=== PATIENT | male | born 1960 | race Caucasian/White ===

== ENCOUNTER 2018-10-10 11:52 | Day surgery (SDC) | payer MEDICARE ==
[2018-10-09 11:25] LABS: ABSOLUTE BASOPHILS # (AUTO) 0.1 10^3/uL (0.0-0.2); ABSOLUTE EOSINOPHILS # (AUTO) 0.2 10^3/uL (0.0-0.6); ABSOLUTE LYMPHOCYTES (AUTO) 2.2 10^3/uL (0.5-4.7); ABSOLUTE MONOCYTES (AUTO) 0.9 10^3/uL (0.1-1.4); ABSOLUTE NEUT (AUTO) 4.5 10^3/uL (1.7-8.2); BASOPHILS % (AUTO) 0.7 % (0-2); EOSINOPHILS % (AUTO) 2.2 % (0-6); HEMATOCRIT 45.4 % (37.9-51.0); HEMOGLOBIN 15.9 g/dL (13.5-17.0); LYMPHOCYTES % (AUTO) 27.8 % (13-45); MEAN CORPUSCULAR HEMOGLOBIN 31.6 pg (27.0-33.4); MEAN CORPUSCULAR VOLUME 90 fl (80-97); MONOCYTES % (AUTO) 12.2 % (3-13); PLATELET COUNT 216 10^3/uL (150-450); RED BLOOD COUNT 5.04 10^6/uL (4.35-5.55); RED CELL DISTRIBUTION WIDTH 13.6 % (11.5-14.0); SEGMENTED NEUTROPHILS % (AUTO) 57.1 % (42-78); TOTAL CELLS COUNTED % (AUTO) 100 %; WHITE BLOOD COUNT 7.8 10^3/uL (4.0-10.5)
[2018-10-09 11:29] LABS: APPEARANCE,URINE CLEAR; BILIRUBIN,URINE NEGATIVE (NEGATIVE); COLOR,URINE AMBER; GLUCOSE, URINE NEGATIVE (NEGATIVE); KETONES,URINE NEGATIVE (NEGATIVE); LEUKOCYTE ESTERASE,URINE NEGATIVE (NEGATIVE); NITRITE,URINE NEGATIVE (NEGATIVE); PROTEIN,URINE NEGATIVE (NEGATIVE)
[2018-10-09 11:48] LABS: ANION GAP 11 (5-19); BLOOD UREA NITROGEN 16 mg/dL (7-20); CALCIUM 9.1 mg/dL (8.4-10.2); CARBON DIOXIDE 25 mmol/L (22-30); CHLORIDE 106 mmol/L (98-107); GLUCOSE 86 mg/dL (75-110); POTASSIUM 5.1 mmol/L (3.6-5.0); SODIUM 142.4 mmol/L (137-145)
--- NOTE | 2018-10-09 12:37 | RADIOLOGY REPORT (SQ) ---
EXAM DESCRIPTION: CHEST PA/LATERAL COMPLETED DATE/TIME: 10/09/2018 12:11 pm REASON FOR STUDY: PRE-OP COMPARISON: None. EXAM PARAMETERS: NUMBER OF VIEWS: two views TECHNIQUE: Digital Frontal and Lateral radiographic views of the chest acquired. RADIATION DOSE: NA LIMITATIONS: none FINDINGS: LUNGS AND PLEURA: Since the previous examination, mild pleural thickening in the left upp er--mid left hemithorax, may be related prior remote trauma. No acute pulmonary consolidation. No p neumothorax or pleural effusion. MEDIASTINUM AND HILAR STRUCTURES: No masses or contour abnormalities. HEART AND VASCULAR STRUCTURES: Heart normal size. No evidence for failure. BONES: Old left healed rib fractures. HARDWARE: None in the chest. OTHER: No other significant finding. IMPRESSION: 1. Since the previous examination dated 07/27/2011, new mild pleural thickening in the l eft upper-mid hemithorax. This finding may be related prior remote injury/trauma. Correlation and f urther evaluation with CT chest with IV contrast suggested. 2. Several old healed left rib fractures. 3. No acute pulmonary consolidation. TECHNICAL DOCUMENTATION: JOB ID: [id number] [employer]- All Rights Reserved Reading location - IP/workstation name: [email or web address]
--- NOTE | 2018-10-09 16:11 | EKG REPORT ---
SEVERITY:- NORMAL ECG - SINUS RHYTHM : Confirmed by: Cecilia Pedro MD 09-Oct-2018 16:10:01
[~2018-10-10 11:52] MED LIST: CEFAZOLIN 2 GM/D5W RTU 2 GM/50 ML RTUPB IV PRN; LACTATED RINGERS 1000 ML IV PRN; LIDOCAINE 0.5% INJ-PF (5 MG/ML) 50 ML SDV SUBCUT PRN
[2018-10-10] MEDS ORDERED: CEFAZOLIN 2 GM/D5W RTU 2 GM/50 ML RTUPB IV ONE (12:21)
[2018-10-10] MEDS ORDERED: BUPIVACAINE HCL 0.5 % INJ/PF 30 ML SDV ONE (13:00)
[2018-10-10] MEDS ORDERED: EPINEPHRINE INJ/PF 1 MG/1 ML AMPULE ONE (13:00)
[2018-10-10] MEDS ORDERED: ALBUTEROL SULFATE 0.083% NEB 2.5 MG/3 ML AMPUL NEB ONE (13:33)
[2018-10-10] MEDS ORDERED: SUCCINYLCHOLINE CHLORIDE INJ 200 MG/10 ML VIAL ONE (13:45)
[2018-10-10] MEDS ORDERED: KETOROLAC TROMETHAMINE 60 MG/2 ML SDV ONE (13:45)
[2018-10-10] MEDS ORDERED: RINGERS SOLUTION,LACTATED 1,000 ML IV ONE (14:15)
[2018-10-10] MEDS ORDERED: MIDAZOLAM 2 MG/2 ML INJ ONE (14:45)
[2018-10-10] MEDS ORDERED: FENTANYL CITRATE INJ/PF 100 MCG/2 ML AMPUL ONE (14:45)
[2018-10-10] MEDS ORDERED: DEXAMETHASONE SOD PHOSPHATE INJ 4 MG/1 ML VIAL ONE (14:46)
[2018-10-10] MEDS ORDERED: ACETAMINOPHEN 1,000 MG/100 ML RTUPB IV ONE (14:46)
[2018-10-10] MEDS ORDERED: ONDANSETRON HCL INJ/PF 4 MG/2 ML SDV ONE (14:46)
[2018-10-10] MEDS ORDERED: PROPOFOL INJ 200 MG/20 ML VIAL IV ONE (14:46)
[2018-10-10] MEDS ORDERED: EPHEDRINE SULFATE INJ 50 MG/1 ML AMPULE ONE (14:46)
[2018-10-10] MEDS ORDERED: ONDANSETRON HCL INJ/PF 4 MG/2 ML SDV IV PRN ×2 (16:07→17:51)
[2018-10-10] MEDS ORDERED: MEPERIDINE HCL/PF INJ 25 MG/1 ML DISP.SYRIN IV PRN (16:07)
[2018-10-10] MEDS ORDERED: FENTANYL CITRATE INJ/PF 100 MCG/2 ML AMPUL IV PRN ×3 (16:07)
[2018-10-10] MEDS ORDERED: PROMETHAZINE HCL INJ 25 MG/1 ML VIAL IV PRN ×2 (16:07)
[2018-10-10] MEDS ORDERED: MORPHINE SULFATE 10 MG/ML INJ IV PRN ×2 (16:07→17:51)
[2018-10-10] MEDS ORDERED: DIPHENHYDRAMINE HCL 50 MG/ML VIAL IV PRN (16:07)
--- NOTE | 2018-10-10 17:43 | Discharge Summary ---
Discharge Summary (SDC) - Discharge Final Diagnosis: Left shoulder rotator cuff tear Date of Surgery: 10/10/18 Discharge Date: 10/10/18 Condition: Good Treatment or Instructions: Schedule Follow Up w/ Dr. Bi Mcpherson @ [facility] to be seen in 10-14 days or as scheduled [place]: [place]: [place]: May remove dressing on postop day #3, keep incision covered and dry. Cryocuff to shoulder May begin pendulum exercises along w/ hand, wrist and elbow range of motion 4x per day or as tolerated. May remove sling for hygiene purposes otherwise continue it at all times. Stool softener of choice when on pain medication. Prescriptions: Ketorolac Tromethamine [Toradol 10 mg Tablet] 10 mg PO Q8HP PRN #12 tablet PRN Reason: Oxycodone HCl/Acetaminophen [Percocet 5-325 mg Tablet] 1 tab PO Q6 PRN #25 tab PRN Reason: Referrals: INDIO VALENCIA MD [Primary Care Provider] - Respiratory Treatments at Home: Deep Breathing/Coughing, Incentive Spirometer Discharge Activity: No Lifting Over 10 Pounds, No Lifting/Push/Pulling Report the Following to Your Physician Immediately: Fever over 101 Degrees, Unusual Bleeding, Redness, Swelling, Warmth, Increased Soreness
[2018-10-10] MEDS ORDERED: OXYCODONE-ACETAMINOPHEN 5-325 MG TABLET PO PRN (17:51)
--- NOTE | 2018-10-10 17:51 | Operative Report ---
Operative Report DATE OF SURGERY: 10/10/18 PREOPERATIVE DIAGNOSIS: LEFT shoulder rotator cuff tear, AC joint arthritis, de generative SLAP tear POSTOPERATIVE DIAGNOSIS: Same OPERATION: 1. Left shoulder arthroscopy with rotator cuff repair, distal clavicle excision, acromioplasty subacromial decompression. 2. Subpectoralis biceps tenodesis SURGEON: STEPHEN MCBRIDE ANESTHESIA: GA COMPLICATIONS: None ESTIMATED BLOOD LOSS: Minimal PROCEDURE: Indication for above procedure: 58-year-old male with long-standing history of left shoulder discomfort. Attempted conservative measures including anti-inflammatories, injections, therapy without resolution of patient's symptoms. At that point decision was made to proceed with operative intervention. Risks and benefits of the surgical procedure were explained, patient verbalized understanding consented for procedure. Procedure In Detail: Patient was seen and evaluated in the preoperative holding area. The LEFT upper extremity was initialized and marked. Patient received 2g of Ancef IV for bacterial prophylaxis. Patient was taken back to the operative room where transferred to the operative table and placed under general anesthesia. Once they were adequately anesthetized patient was placed in the beachchair position with cervical spine positioned in neutral. Bilateral lower extremities and nonoperative right upper extremities carefully padded. A surgical team debriefing was performed ensuring all instrumentation was available, the surgical procedure was discussed with possible concerns reviewed. The upper extremity was prepped with ChloraPrep and draped in a sterile fashion. A timeout was done identifying correct patient, procedure and extremity everyone in attendance agree with this and verbalized no concerns. Posterior lateral portal was established arthroscope introduced into the Missael humeral joint. Via translation anterior portal established. Diagnostic ar throscopy demonstrated significant SLAP degeneration. The biceps tendon was visualized demonstrating extension into the biceps tendon with significant synovitis. Subscapularis remained intact. The undersurface of the rotator cuff demonstrated high-grade partial-thickness tear of the supraspinatus no involvement of the infraspinatus or teres minor. The biceps tendon was then tenotomized and the labrum debrided. There was grade II changes along the humeral head and glenoid. Chondroplasty was performed to the head. Arthroscope was then introduced into the subacromial space lateral portal was established. Subacromial bursectomy was performed coracoacromial ligament was released but not excised. Inspection of the rotator cuff demonstrated high- grade partial-thickness tear which coincided with interarticular findings this tear was then completed and debrided. The tuberosity was debrided down to cancellus bone to promote healing. A passport cannula was placed. Acromioplasty was performed anteriorly. Via the anterior portal approximately 1 cm of distal clavicle was excised. Visualization to the anterior portal ensure there is adequate bony debridement. Via triangulation an additional portal was established and a swivel lock anchor placed along the medial row to perform a double row repair. The FiberWire sutures were placed essentially within the rotator cuff tear. The fiber tapes were placed anterior and posterior respectively. The FiberWire sutures were then tied arthroscopically securing the rotator cuff to the medial row. All 4 stitches were then placed into a swivel lock anchor and a lateral row established. Swivel lock was placed into the lateral aspect of the tuberosity tensioning each stitch dependently to bring the rotator cuff firmly down to bone. I completion the rotator cuff moved as a unit there is no evidence of residual extension into the articular surface. Longitudinal skin incision was made along the inferior third of the pectoralis major. Blunt dissection was performed identifying the inferior border of the pectoralis major. Any peripheral vasculature was carefully coagulated. I then identified the tenotomized long head of the biceps which was retrieved and brought out the wound. The tendon was then secured 2 centimeters distal to the musculotendinous junction with a #2 fiber loop and the remaining diseased portion of the biceps was excised. The Arthrex biceps tenodesis button was then secured to my biceps tendon. Under direct visualization I then cleared an area along the anterior aspect of the humerus and drilled unicortically. The button was then placed into the unicortical hole and the biceps tendon was shuttled to the anterior cortex of the humerus. I then checked stability of the button confirming maximal fixation. Utilizing the free needle one limb of the remaining FiberWire was secured to the biceps providing further fixation. The elbow was then placed through range of motion to ensure appropriate tension of the biceps with flexion and extension. The wound was then copiously irrigated with normal saline. Any peripheral vasculature was carefully coagulated with Bovie cautery. Portals were closed with interrupted subcuticular 4-0 Monocryl. Skin was closed a running subcuticular 4-0 Monocryl suture reinforced with Dermabond and Steri-Strips. 30 cc of 0.5% bupivacaine without epinephrine was injected for postoperative pain control. Sponge counts, instrument counts, needle counts were correct. Patient was then awoken from anesthesia. Transferred from the operating room table to the operating room stretcher. There was no intraoperative complications patient tolerated procedure well stable to PACU. Postoperative plan: Patient will follow in the office in 2 weeks for wound check. We will begin visible therapy 4 weeks postop day as per rotator cuff repair protocol.
[2018-10-10] MEDS ORDERED: LIDOCAINE 2% INJ (20 MG/ML) 20 ML MDV ONE (17:59)
[2018-10-10] MEDS ORDERED: ROPIVACAINE HCL 0.5% INJ/PF (5 MG/1 ML) 30 ML SDV ONE (18:00)
[2018-10-10] MEDS ORDERED: LIDOCAINE 1%/EPINEPHRINE INJ 20 ML VIAL ONE (18:01)
[2018-10-10 20:38] VITALS: BP 157/80
== END 2018-10-10 20:39 | disposition home or self-care (01) ==
LOC: OROUT 11:52
PROVIDERS: ATTEND Orthopaedic Surgery
DX: M75.112 Incomplete rotator cuff tear or rupture of left shoulder, not specified as traumatic (principal); M13.819 Other specified arthritis, unspecified shoulder; S43.432A Superior glenoid labrum lesion of left shoulder, initial encounter; X58.XXXA Exposure to other specified factors, initial encounter; M25.512 Pain in left shoulder; Z87.891 Personal history of nicotine dependence
CPT/HCPCS: 24340; 29827; 29826; 29824; 93005; 36415 ×2; 84132; 85025; 80048; 81001; 71046; 93010; L3650; C1713 ×3; J2795; J2250; J3490 ×3; J1100; J0171; J1885; J3010; J0330; J2405; J2704; A9270; J0690; J0131; 1630